=== PATIENT | male | born 1935 | race Caucasian/White ===

== ENCOUNTER → 2017-08-01 | Outpatient (CLI) | payer OTHER | END | disposition home or self-care (01) | LOC: RAH 12:15 | PROVIDERS: ATTEND Internal Medicine | DX: J06.9 Acute upper respiratory infection, unspecified (principal) | CPT/HCPCS: 71046 ==

== ENCOUNTER → 2017-08-20 | Outpatient (CLI) | payer OTHER, MEDICARE | END | disposition home or self-care (01) | LOC: RAH 12:38 | PROVIDERS: ATTEND Internal Medicine | DX: J32.9 Chronic sinusitis, unspecified (principal) | CPT/HCPCS: 70486 ==

== ENCOUNTER 2022-02-21 20:37 | Emergency (ER) | payer OTHER ==
[~2022-02-21 20:37] MED LIST: AEC81 PO; ATRO2DRO OD; AZEL137S11 NS; BRIM5DRO4 OU; DORZ10DR10 OU; GUAI200T5 PO; LATA7.5D OU; LEVO-70 PO; LIDOP TP; MELA1TAB17 PO; MEMA28CA16 PO; MULT-1259 PO; VIT1CAPS5 PO
[2022-02-21 21:05] LABS: HEMATOCRIT 32.9 % (42-54); MEAN CORPUSCULAR HEMOGLOBIN 31.1 pg (27.0-33.0); MEAN CORPUSCULAR HGB CONC 31.9 g/dL (32.0-36.0); MEAN CORPUSCULAR VOLUME 97.3 fL (79-99); PLATELET COUNT (AUTO) 299 K/uL (130-400); RED BLOOD CELL COUNT(AUTO) 3.38 MIL/uL (4.50-6.20); RED CELL DISTRIBUTION WIDTH 13.2 % (11.0-15.5); WHITE BLOOD COUNT (AUTO) 10.8 K/uL (4.8-10.8)
[2022-02-21 21:18] LABS: BASOPHILS % (AUTO) 0.4 % (0.0-5.0); EOSINOPHILS % (AUTO) 0.6 % (0.0-8.0); LYMPHOCYTES % (AUTO) 14.1 % (21.0-51.0); MONOCYTES % (AUTO) 6.8 % (3.0-13.0); NEUTROPHILS % (AUTO) 76.7 % (40.0-77.0)
[2022-02-21 21:24] LABS: ALBUMIN 3.1 g/dL (3.5-5.0); CREATININE 1.3 mg/dL (0.5-1.5); POTASSIUM 4.3 mmol/L (3.5-5.1); TOTAL PROTEIN, SERUM 7.2 g/dL (6.0-8.3)
[2022-02-21] MEDS ORDERED: TETANUS/DIPHTHERIA TOXOID [ADULT] 0.5 ML VIAL IM ONE (21:30)
[2022-02-21 21:38] LABS: CREATINE KINASE, TOTAL 77 U/L (21-232)
[2022-02-21 21:39] LABS: CRP QUANTITATIVE < 2.00 mg/L (0.00-9.0)
[2022-02-21 23:00] VITALS: BP 152/72
== END 2022-02-21 23:21 | disposition home or self-care (01) ==
LOC: EDH 20:37
DX: S51.012A Laceration without foreign body of left elbow, initial encounter (principal); G30.9 Alzheimer's disease, unspecified; F02.80 Dementia in other diseases classified elsewhere, unspecified severity, without behavioral disturbance, psychotic disturbance, mood disturbance, and anxiety; I10 Essential (primary) hypertension; F32.9 Major depressive disorder, single episode, unspecified; Z79.899 Other long term (current) drug therapy; Z79.82 Long term (current) use of aspirin; W19.XXXA Unspecified fall, initial encounter; Y93.89 Activity, other specified; Y92.89 Other specified places as the place of occurrence of the external cause; Y99.8 Other external cause status
CPT/HCPCS: 36415; 70450; 71045; 72125; 73070; 80053; 82550; 83735; 84484; 85025; 86140; 90471; 90714; 93005

== ENCOUNTER 2022-11-18 18:58 | Inpatient (IN) | payer OTHER ==
[~2022-11-18] VITALS: Ht 177.8 cm; Wt 79.4 kg
[~2022-11-18 18:58] MED LIST changes: -ATRO2DRO OD; +ATRO2DRO7 OD; -BRIM5DRO4 OU; +BRIM5DRO5 OU
[2022-11-18 19:50] LABS: BASOPHILS # (AUTO) 0.03 K/uL (0.00-0.20); BASOPHILS % (AUTO) 0.3 % (0.0-5.0); EOSINOPHILS # (AUTO) 0.04 K/uL (0.00-0.70); EOSINOPHILS % (AUTO) 0.4 % (0.0-8.0); HEMATOCRIT 37.1 % (42-54); IMMATURE GRANULOCYTE ABSOLUTE 0.03 K/uL (0-1); LYMPHOCYTES # (AUTO) 2.4 K/uL (1.0-4.8); LYMPHOCYTES % (AUTO) 23.7 % (21.0-51.0); MEAN CORPUSCULAR HEMOGLOBIN 31.1 pg (27.0-33.0); MEAN CORPUSCULAR HGB CONC 32.6 g/dL (32.0-36.0); MEAN CORPUSCULAR VOLUME 95.4 fL (79-99); MONOCYTES # (AUTO) 0.6 K/uL (0.1-1.0); MONOCYTES % (AUTO) 5.5 % (3.0-13.0); NEUTROPHILS % (AUTO) 69.8 % (40.0-77.0); PLATELET COUNT (AUTO) 204 K/uL (130-400); RED BLOOD CELL COUNT(AUTO) 3.89 MIL/uL (4.50-6.20); RED CELL DISTRIBUTION WIDTH 11.7 % (11.0-15.5)
[2022-11-18] MEDS ORDERED: ONDANSETRON 4MG INJ IVP ONE (20:00)
[2022-11-18] MEDS ORDERED: MORPHINE 2 MG SYG IVP ONE (20:00)
[2022-11-18 20:03] LABS: INR < 0.93 (0.85-1.15); PROTHROMBIN TIME 10.5 SEC (9.6-11.6)
[2022-11-18 20:20] LABS: BILIRUBIN,TOTAL 0.3 mg/dL (0.2-1.0); CREATININE 1.3 mg/dL (0.5-1.5); POTASSIUM 4.3 mmol/L (3.5-5.1); TOTAL PROTEIN, SERUM 7.3 g/dL (6.0-8.3)
[2022-11-18 20:28] LABS: MAGNESIUM 1.9 mg/dL (1.80-2.40)
[2022-11-18] MEDS ORDERED: ACETAMINOPHEN 325 MG TAB PO PRN ×2 (21:30)
[2022-11-18] MEDS ORDERED: ONDANSETRON 4MG INJ IV PRN (21:30)
[2022-11-18] MEDS ORDERED: MORPHINE 4 MG SYG IV PRN (21:30)
[2022-11-19] VITALS (8 sets, daily range): BP systolic 149–172; BP diastolic 69–97; PULSE 55–96; RESP 20–21; O2SAT 96–99
[2022-11-19] MEDS: LACTATED RINGERS 1000ML 1,000 ML IV SCH ×3 (01:01→22:07)
[2022-11-19 06:01] LABS: BASOPHILS # (AUTO) 0.01 K/uL (0.00-0.20); BASOPHILS % (AUTO) 0.1 % (0.0-5.0); HEMATOCRIT 31.4 % (42-54); IMMATURE GRANULOCYTE ABSOLUTE 0.05 K/uL (0-1); LYMPHOCYTES # (AUTO) 1.1 K/uL (1.0-4.8); LYMPHOCYTES % (AUTO) 9.5 % (21.0-51.0); MEAN CORPUSCULAR HEMOGLOBIN 31.4 pg (27.0-33.0); MEAN CORPUSCULAR HGB CONC 33.1 g/dL (32.0-36.0); MEAN CORPUSCULAR VOLUME 94.9 fL (79-99); MONOCYTES # (AUTO) 0.9 K/uL (0.1-1.0); MONOCYTES % (AUTO) 7.7 % (3.0-13.0); NEUTROPHILS # (AUTO) 9.7 K/uL (1.8-7.7); NEUTROPHILS % (AUTO) 82.3 % (40.0-77.0); PLATELET COUNT (AUTO) 206 K/uL (130-400); RED BLOOD CELL COUNT(AUTO) 3.31 MIL/uL (4.50-6.20); RED CELL DISTRIBUTION WIDTH 11.8 % (11.0-15.5); WHITE BLOOD COUNT (AUTO) 11.7 K/uL (4.8-10.8)
[2022-11-19 06:13] LABS: INR < 0.93 (0.85-1.15); PROTHROMBIN TIME 10.6 SEC (9.6-11.6)
[2022-11-19 06:14] LABS: PARTIAL THROMBOPLASTIN TIME 26.5 SEC (26.3-35.5)
[2022-11-19 06:23] LABS: % IRON SATURATION 10.5 % (30-44); CREATININE 1.5 mg/dL (0.5-1.5); POTASSIUM 3.8 mmol/L (3.5-5.1)
[2022-11-19] MEDS: FAMOTIDINE 20MG VIAL IV SCH (08:47)
[2022-11-19] MEDS: MORPHINE 2 MG SYG IV PRN ×2 (11:18→16:39)
[2022-11-19] MEDS ORDERED: ATROPINE SULFATE 5 ML DROPS OD SCH ×2 (15:30→16:00)
[2022-11-19] MEDS ORDERED: LIDOCAINE 5% TOPICAL PATCH TP PRN (15:30)
[2022-11-19] MEDS: ZINC PO SCH (21:00)
[2022-11-19] MEDS: [UNRECOGNIZED DRUG - OTHER] PO SCH (21:00)
[2022-11-19] MEDS ORDERED: NON-FORMULARY MEDICATION 1 EACH (Latanoprost/Pf (Latanoprost 0.005% Eye Drop) 1 DROP) OU SCH (21:00)
[2022-11-19] MEDS: IRON PO SCH (21:00)
[2022-11-19] MEDS: COPPER PO SCH (21:00)
[2022-11-19] MEDS: VIT A PO SCH (21:00)
[2022-11-19] MEDS: VIT E PO SCH (21:00)
[2022-11-19] MEDS: LATANOPROST 2.5 ML DROPS OU SCH (21:00)
[2022-11-19] MEDS: VIT C PO SCH (21:00)
[2022-11-19] MEDS: MULTIVITS CA MIN PO SCH (21:00)
[2022-11-19] MEDS: LYCOP PO SCH (21:00)
[2022-11-19] MEDS: BRIMONIDINE TARTRATE 0.2% 5 ML BOTTLE OU SCH (21:50)
[2022-11-19] MEDS: DORZOLAMIDE HCL/TIMOLOL MALEAT DROPS 10 ML BOTTLE OU SCH (21:50)
[2022-11-20] VITALS (32 sets, daily range): BP systolic 79–185; BP diastolic 63–98; PULSE 65–95; RESP 12–20; O2SAT 99
[2022-11-20 05:04] LABS: BASOPHILS # (AUTO) 0.03 K/uL (0.00-0.20); BASOPHILS % (AUTO) 0.3 % (0.0-5.0); HEMATOCRIT 29.1 % (42-54); IMMATURE GRANULOCYTE ABSOLUTE 0.03 K/uL (0-1); LYMPHOCYTES # (AUTO) 1.7 K/uL (1.0-4.8); LYMPHOCYTES % (AUTO) 19.3 % (21.0-51.0); MEAN CORPUSCULAR HEMOGLOBIN 31.2 pg (27.0-33.0); MEAN CORPUSCULAR HGB CONC 31.3 g/dL (32.0-36.0); MEAN CORPUSCULAR VOLUME 99.7 fL (79-99); MONOCYTES # (AUTO) 1.1 K/uL (0.1-1.0); MONOCYTES % (AUTO) 11.9 % (3.0-13.0); NEUTROPHILS # (AUTO) 6.1 K/uL (1.8-7.7); NEUTROPHILS % (AUTO) 68.2 % (40.0-77.0); PLATELET COUNT (AUTO) 146 K/uL (130-400); RED BLOOD CELL COUNT(AUTO) 2.92 MIL/uL (4.50-6.20); RED CELL DISTRIBUTION WIDTH 11.9 % (11.0-15.5)
[2022-11-20 05:29] LABS: ALBUMIN 2.9 g/dL (3.5-5.0); BILIRUBIN,TOTAL 0.7 mg/dL (0.2-1.0); CREATININE 1.1 mg/dL (0.5-1.5); MAGNESIUM 1.9 mg/dL (1.80-2.40); POTASSIUM 3.9 mmol/L (3.5-5.1); TOTAL PROTEIN, SERUM 6.2 g/dL (6.0-8.3)
[2022-11-20] MEDS: GUAIFENESIN 200 MG PO SCH (08:00)
[2022-11-20] MEDS: ASPIRIN 81 MG EC TAB PO SCH (08:38)
[2022-11-20] MEDS: MULTIVITS CA MIN PO SCH ×2 (09:00→20:18)
[2022-11-20] MEDS: ZINC PO SCH ×2 (09:00→20:18)
[2022-11-20] MEDS: IRON PO SCH ×2 (09:00→20:18)
[2022-11-20] MEDS: COPPER PO SCH ×2 (09:00→20:18)
[2022-11-20] MEDS: [UNRECOGNIZED DRUG - OTHER] PO SCH ×2 (09:00→20:18)
[2022-11-20] MEDS: VIT E PO SCH ×2 (09:00→20:18)
[2022-11-20] MEDS: VIT A PO SCH ×2 (09:00→20:18)
[2022-11-20] MEDS ORDERED: AZELASTINE HCL 0.1% NASAL SCH (09:00)
[2022-11-20] MEDS: VIT C PO SCH ×2 (09:00→20:18)
[2022-11-20] MEDS: LYCOP PO SCH ×2 (09:00→20:18)
[2022-11-20] MEDS: FAMOTIDINE 20MG VIAL IV SCH (09:59)
[2022-11-20] MEDS: DORZOLAMIDE HCL/TIMOLOL MALEAT DROPS 10 ML BOTTLE OU SCH ×2 (10:00→20:18)
[2022-11-20] MEDS: BRIMONIDINE TARTRATE 0.2% 5 ML BOTTLE OU SCH ×3 (10:00→20:18)
[2022-11-20] MEDS: MORPHINE 2 MG SYG IV PRN (10:41)
[2022-11-20] MEDS ORDERED: ROPIVACAINE 0.5% 5MG/ML 30ML IJ ONE (12:28)
[2022-11-20] MEDS ORDERED: KETAMINE 50MG/ML SYRINGE 50 MG/ML DISP.SYRIN ONE (12:29)
[2022-11-20] MEDS ORDERED: CEFAZOLIN SODIUM 2 GM VIAL ONE (12:29)
[2022-11-20] MEDS ORDERED: LIDOCAINE PF 100MG/5ML (2%) SYRINGE 5ML ONE (12:29)
[2022-11-20] MEDS ORDERED: PROPOFOL 10 MG/ML 20ML VIAL IV ONE (12:29)
[2022-11-20] MEDS ORDERED: CEFAZOLIN SODIUM 2 GM VIAL IVPB ONE (13:00)
[2022-11-20] MEDS ORDERED: FENTANYL CITRATE PF 50 MCG/1 ML 2ML VIAL ONE (13:43)
[2022-11-20] MEDS ORDERED: 0.9%NACL 10ML VIAL ONE (14:26)
[2022-11-20] MEDS ORDERED: MEPERIDINE-PF 25 MG/ML SYG ONE (14:47)
[2022-11-20] MEDS ORDERED: HYDROCODONE/ACETAMINOPHEN 5/325 MG TAB PO PRN (17:00)
[2022-11-20] MEDS: LATANOPROST 2.5 ML DROPS OU SCH (20:18)
[2022-11-21] VITALS: BP 126/79; PULSE 73; RESP 18
[2022-11-21 04:00] VITALS: BP 130/84; PULSE 71; RESP 18
[2022-11-21 04:48] LABS: BASOPHILS # (AUTO) 0.03 K/uL (0.00-0.20); BASOPHILS % (AUTO) 0.3 % (0.0-5.0); IMMATURE GRANULOCYTE ABSOLUTE 0.06 K/uL (0-1); LYMPHOCYTES # (AUTO) 1.9 K/uL (1.0-4.8); LYMPHOCYTES % (AUTO) 18.4 % (21.0-51.0); MEAN CORPUSCULAR HEMOGLOBIN 31.5 pg (27.0-33.0); MEAN CORPUSCULAR HGB CONC 31.6 g/dL (32.0-36.0); MEAN CORPUSCULAR VOLUME 99.6 fL (79-99); MONOCYTES % (AUTO) 9.5 % (3.0-13.0); NEUTROPHILS # (AUTO) 7.3 K/uL (1.8-7.7); NEUTROPHILS % (AUTO) 71.2 % (40.0-77.0); PLATELET COUNT (AUTO) 141 K/uL (130-400); RED BLOOD CELL COUNT(AUTO) 2.51 MIL/uL (4.50-6.20); WHITE BLOOD COUNT (AUTO) 10.2 K/uL (4.8-10.8)
[2022-11-21 05:03] LABS: ALBUMIN 2.5 g/dL (3.5-5.0); BILIRUBIN,TOTAL 0.6 mg/dL (0.2-1.0); CREATININE 1.3 mg/dL (0.5-1.5); MAGNESIUM 1.9 mg/dL (1.80-2.40); TOTAL PROTEIN, SERUM 5.9 g/dL (6.0-8.3)
[2022-11-21] MEDS: MORPHINE 2 MG SYG IV PRN (07:17)
[2022-11-21 07:25] VITALS: BP 108/68; PULSE 74; RESP 16
[2022-11-21] MEDS: GUAIFENESIN 200 MG PO SCH (08:00)
[2022-11-21] MEDS ORDERED: ENOXAPARIN SODIUM 40 MG/0.4 ML SYRINGE SQ SCH (09:00)
[2022-11-21] MEDS: ZINC PO SCH (09:00)
[2022-11-21] MEDS: VIT C PO SCH (09:00)
[2022-11-21] MEDS: MULTIVITS CA MIN PO SCH (09:00)
[2022-11-21] MEDS: IRON PO SCH (09:00)
[2022-11-21] MEDS: COPPER PO SCH (09:00)
[2022-11-21] MEDS: [UNRECOGNIZED DRUG - OTHER] PO SCH (09:00)
[2022-11-21] MEDS: VIT E PO SCH (09:00)
[2022-11-21] MEDS: LYCOP PO SCH (09:00)
[2022-11-21] MEDS: VIT A PO SCH (09:00)
[2022-11-21] MEDS: ASPIRIN 81 MG EC TAB PO SCH (09:42)
[2022-11-21] MEDS: FAMOTIDINE 20MG VIAL IV SCH (09:42)
[2022-11-21 11:51] VITALS: BP 143/84; PULSE 82; RESP 16
[2022-11-21 12:25] VITALS: O2SAT 97
== END 2022-11-21 16:53 | DRG 481 ==
LOC: EDH 18:58 → EDHIP 21:21 → 4CH 11-19 03:32
PROVIDERS: ADMIT Internal Medicine; ATTEND Internal Medicine
PROC: 0QS604Z Reposition Right Upper Femur with Internal Fixation Device, Open Approach (ICD-10-PCS; principal; 2022-11-21)
DX: S72.141A Displaced intertrochanteric fracture of right femur, initial encounter for closed fracture (principal); M97.01XA Periprosthetic fracture around internal prosthetic right hip joint, initial encounter; F02.80 Dementia in other diseases classified elsewhere, unspecified severity, without behavioral disturbance, psychotic disturbance, mood disturbance, and anxiety; G30.9 Alzheimer's disease, unspecified; D64.9 Anemia, unspecified; I10 Essential (primary) hypertension; Z66 Do not resuscitate; R29.6 Repeated falls; W05.0XXA Fall from non-moving wheelchair, initial encounter; Y93.89 Activity, other specified; Y92.89 Other specified places as the place of occurrence of the external cause; Y99.8 Other external cause status; Z79.82 Long term (current) use of aspirin; Z85.46 Personal history of malignant neoplasm of prostate; Z90.49 Acquired absence of other specified parts of digestive tract
CPT/HCPCS: 36415; 70450; 71045; 72125; 72170; 72190; 73502; 73503; 73551; 80048; 80053; 82550; 82948; 83540; 83550; 83735; 83874; 84100; 84484; 85025; 85610; 85730; 86850; 86900; 86901; 93005; 97039; G0378; J1650; J2001; J2175; J2270; J2405; J2704; J2795; J3010; J3490; J7120; A4216; A4222; A4223; A4600; A5120; G8983-CM; J0690